=== PATIENT | male | born 1945 | race Caucasian/White ===

== ENCOUNTER 2018-07-14 15:33 | Outpatient (CLI) | payer MEDICARE ==
--- NOTE | 2018-07-14 16:43 | CT ---
CT ABDOMEN AND PELVIS NONCONTRAST: Date: 07/14/18 HISTORY: Microscopic hematuria. FINDINGS: Each renal collecting system, ureter, and the urinary bladder are decompressed. Parapelvic cysts are stable compared to the prior study. Oval calcifications within nondilated calices at the superior pole of the left kidney is 0.6 cm, at t he mid portion 1.0 cm, and at the inferior pole 1.2 cm. No stones are apparent on the right. Lack of contrast limits evaluation for other abnormalities. Gallbladder is surgically absent. Complex lobular exophytic slightly hyperdense cyst projecting superiorly from the left kidney measures up to 4.1 cm and is stable compared to the prior study from 2013. A 4.1 cm diverticulum projects posterior ly and rightward from the urinary bladder and a 2.6 cm diverticulum projects superiorly. Degenerative changes of lumbar spine. Calcification in the arterial structures. Calcified granulomata are consist ent with healed granulomatous disease. IMPRESSION: 1. Nonobstructing left renal calculi measuring up to 1.2 cm. 2. Urinary bladder diverticula suggestive of chronic bladder outlet obstruction. 3. Atherosclerosis. 4. Left renal cysts are stable. POS: [facility]
== END 2018-07-14 15:34 | disposition home or self-care (01) ==
LOC: BICCT 15:33
PROVIDERS: ATTEND Urology
DX: R31.29 Other microscopic hematuria (principal); N20.0 Calculus of kidney; N32.3 Diverticulum of bladder; I25.10 Atherosclerotic heart disease of native coronary artery without angina pectoris; N28.1 Cyst of kidney, acquired
CPT/HCPCS: 74176

== ENCOUNTER 2018-08-10 15:09 | Outpatient (CLI) | payer MEDICARE ==
[2018-08-10 17:12] LABS: Hemoglobin 15.2 g/dL (14.0-18.0); Mean Corpuscular HGB CONC 32.9 g/dL (32.0-36.0); Mean Corpuscular Volume 97.3 fL (78.0-98.0); Mean Platelet Volume 8.1 fL (7.4-10.4); Platelet Count 229 thou/uL (130-400); RBC Distribution Width 11.7 % (11.5-14.5); Red Blood Cell (RBC) Count 4.73 mill/uL (4.70-6.10); White Blood Cell (WBC) Count 7.9 thou/uL (4.8-10.8)
[2018-08-10 17:26] LABS: Anion Gap 12 mmol/L (10-20); BUN (Urea Nitrogen) 22 mg/dL (8.4-25.7); Calc. Creatinine Clearance 0 mL/min (70-130); Calcium 9.7 mg/dL (7.8-10.44); Carbon Dioxide 28 mmol/L (23-31); Chloride 106 mmol/L (98-107); Estimated GFR-MDRD 70; Glucose 92 mg/dL (83-110); Potassium 3.9 mmol/L (3.5-5.1); Sodium 142 mmol/L (136-145)
== END 2018-08-10 15:10 | disposition home or self-care (01) ==
LOC: LABBT 15:09
PROVIDERS: ATTEND Urology
DX: Z01.812 Encounter for preprocedural laboratory examination (principal); Z12.5 Encounter for screening for malignant neoplasm of prostate; R33.9 Retention of urine, unspecified; N40.1 Benign prostatic hyperplasia with lower urinary tract symptoms; R97.20 Elevated prostate specific antigen [PSA]; N30.00 Acute cystitis without hematuria; E83.50 Unspecified disorder of calcium metabolism; R31.29 Other microscopic hematuria; R39.14 Feeling of incomplete bladder emptying; N20.0 Calculus of kidney
CPT/HCPCS: 80048; 81001; 85027; 87086

== ENCOUNTER 2018-08-22 05:53 | Day surgery (SDC) | payer MEDICARE ==
[2018-08-10 15:17] VITALS: BMI 25.5
[2018-08-22] MEDS ORDERED: Dexamethasone 4 mg/ml Vial ONE (06:23)
[2018-08-22] MEDS ORDERED: cefTRIAXone\\ROCEPHIN 1 GM in Sodium Chloride 0.9% 100 ML IVPB SCH (06:45)
[2018-08-22] MEDS ORDERED: Fentanyl 100 MCG/2 ML VIAL ONE ×2 (07:03→08:06)
--- NOTE | 2018-08-22 07:27 | RAD ---
KUB: DATE: 08/22/18 COMPARISON: None. HISTORY: Preoperative radiograph. FINDINGS: Anterior view of the abdomen shows nonspecific, nonobstructed bowel gas pattern. Two calcifications p roject over the left renal shadow. The largest measures 10.0 mm in size. Cholecystectomy clips are se en. No calcifications project over the right renal shadow. IMPRESSION: Left nephrolithiasis. POS: [facility]
[2018-08-22] MEDS ORDERED: B & O ONE (07:38)
[2018-08-22] MEDS ORDERED: Furosemide 20 MG/2 ML VIAL ONE (07:38)
[2018-08-22] MEDS ORDERED: Midazolam HCl 2 mg/2 ml Vial ONE (08:06)
--- NOTE | 2018-08-22 11:40 | OP ---
DATE OF PROCEDURE: 08/22/2018 PREOPERATIVE DIAGNOSES: Benign prostatic hyperplasia and left renal stones. POSTOPERATIVE DIAGNOSES: Benign prostatic hyperplasia and left renal stones. PROCEDURES PERFORMED: GreenLight laser vaporization of the prostate with enucleation of lateral lobes as well as left extracorporeal shockwave lithotripsy of the upper pole stone only. COMPLICATIONS: No complications. BLOOD LOSS: Minimal. DRAINS REMAINING: A 20-St Helenian 2-way. SPECIMEN: Prostate. INDICATIONS FOR PROCEDURE: The patient is a 73-year-old male, who I saw in the office for both BPH and stone disease and noted to have 3 left stones, 2 of which were in calices with narrowing along the infundibulum and not symptomatic to opt not to address those. There was another in the upper pole, that was 6 or 7 mm, that is since we are taking him to the operating room for GreenLight. We decided to address the shockwave therapy. DESCRIPTION OF PROCEDURE: The patient was brought into the room by anesthesia, laid on the table in the supine position. After general anesthetic, his legs were placed in the lithotomy position and his perineum was prepped and draped in sterile fashion. Using a 22.5-St Helenian cystoscope and a 30 degree lens, urethra was traversed, the bladder inspected. The ureteral orifices were identified quite lateral. A large right bladder diverticulum was noted. A power level of 80 was used to take the bladder neck down to the trigone and bladder floor and power level of 180 was used to enucleate the lateral lobes. A power level of 80 was used to get near the veru. The anterior lobe was taken down somewhat after opening up the entire gland, so a small portion of the anterior lobe was taken down with a power level of 80. When the scope was removed, an OK stream was noted, but I suspect that the bladder diverticulum was preventing the significantly strong stream noted. Put the scope back in and readdressed the contour of the bladder neck to try to make sure that was opened up and otherwise, all chips were ensured to be out. I inspected the diverticulum and there were no chips within that. Total of [id number] joules were used, and the scope was removed final time after ensuring hemostasis and a 20-St Helenian catheter was placed to gravity. The patient was then returned to supine and transferred to another room for ESWL. The patient laid on the table supine and positioned such that the lithotriptor could identify the stone in multiple planes and then total of 2500 shocks at a maximum level of 4/6 and a maximum rate of 60 to 90 were then delivered. Good fragmentation was noted. The patient tolerated the procedure well, was then awakened and transferred to PACU in stable condition. Job ID: [id number]
[2018-08-22] MEDS ORDERED: Metoclopramide HCl 10 MG/2 ML VIAL ONE (15:08)
[2018-08-22] MEDS ORDERED: ePHEDrine 50 MG/ML VIAL ONE (15:08)
[2018-08-22] MEDS ORDERED: PHENYLEPHRINE-NS 100 MCG/ML 10 ML SYRINGE ONE (15:08)
[2018-08-22] MEDS ORDERED: Ondansetron PF 4 MG/2 ML Vial ONE (15:08)
[2018-08-22] MEDS ORDERED: Glycopyrrolate 0.2 MG/ML 5 ML SYRINGE ONE (15:08)
[2018-08-22] MEDS ORDERED: Rocuronium Bromide 10 MG/ML (10ML VIAL) ONE (15:08)
[2018-08-22] MEDS ORDERED: Lidocaine 1% PF 5 ML VIAL ONE (15:08)
[2018-08-22] MEDS ORDERED: diphenhydrAMINE 50 MG/ML VIAL ONE (15:08)
[2018-08-22] MEDS ORDERED: PROPOFOL 200 MG/20 ML VIAL ONE (15:08)
== END 2018-08-22 12:38 | disposition home or self-care (01) ==
LOC: SDC 05:53
PROVIDERS: ATTEND Urology
PROC: 0TF4XZZ Fragmentation in Left Kidney Pelvis, External Approach (ICD-10-PCS; principal; 2018-08-22)
PROC: 0V508ZZ Destruction of Prostate, Via Natural or Artificial Opening Endoscopic (ICD-10-PCS; 2018-08-22)
DX: N20.0 Calculus of kidney (principal); B40.1 Chronic pulmonary blastomycosis; N32.3 Diverticulum of bladder; N40.0 Benign prostatic hyperplasia without lower urinary tract symptoms; I25.10 Atherosclerotic heart disease of native coronary artery without angina pectoris; I10 Essential (primary) hypertension; E78.00 Pure hypercholesterolemia, unspecified; I65.21 Occlusion and stenosis of right carotid artery; Z86.73 Personal history of transient ischemic attack (TIA), and cerebral infarction without residual deficits; Z79.899 Other long term (current) drug therapy; Z98.890 Other specified postprocedural states; Z79.82 Long term (current) use of aspirin
CPT/HCPCS: 74018; 88305; J0696; J1100; J1200; J1940; J2001; J2250; J2405; J2704; J2765; J3010; J3490; J7050

== ENCOUNTER 2018-09-18 14:12 | Outpatient (CLI) | payer MEDICARE ==
--- NOTE | 2018-09-18 15:28 | RAD ---
KUB: HISTORY: Renal stones. FINDINGS: Comparison is made with the exam of 08/22/2018. The 2 calcifications in the projection of the left kidney are again seen with the largest measuring 1 0 mm in size. These are stable. Postop changes of cholecystectomy are again noted. No other suspic ious calcifications are seen. The bowel gas pattern is unremarkable. There are degenerative changes in the spine. IMPRESSION: Stable left nephrolithiasis. POS: [facility]
== END 2018-09-18 14:13 | disposition home or self-care (01) ==
LOC: BICRAD 14:12
PROVIDERS: ATTEND Urology
DX: N20.0 Calculus of kidney (principal)
CPT/HCPCS: 74018

== ENCOUNTER 2020-02-27 08:40 | Outpatient (CLI) | payer MEDICARE ==
--- NOTE | 2020-02-27 09:29 | CT ---
CT Abdomen Pelvis W WO con: 02/27/2020 12:00 AM CLINICAL HISTORY: Hematuria. TECHNIQUE: Multiple contiguous axial images were obtained and a CT of the abdomen and pelvis without and with IV contrast. Postcontrast images were obtained in the nephrographic and excretory phases. Sagittal and coronal reformats were performed. COMPARISON: None. FINDINGS: Kidneys and Urinary Tract: Right kidney and ureter: No calculi. No hydronephrosis or hydroureter. No renal mass or other lesions . No urothelial lesions: no filling defect, dilation, stricture or wall thickening. Left kidney and ureter: Multiple calculi measuring up to 10 mm in size. No hydronephrosis or hydroure ter. Multiple left renal cysts measuring up to 3.3 cm in size. There are parapelvic cysts in the left kidney. There is a proximal left ureteral calcification measuring 10 mm in size. Urinary bladder: 3.2 cm right posterior lateral bladder diverticulum. Remainder of Abdomen and Pelvis: Liver: Normal. Gallbladder and biliary system: Removed No biliary ductal dilatation. Spleen: Normal. Pancreas: Normal. Adrenal glands: Normal. GI tract: Scattered diverticula in the colon. Normal caliber small bowel. Abdominal aorta and its major branches: Atherosclerotic calcifications No aneurysm. Peritoneum/retroperitoneum: Normal. No ascites. No adenopathy. Pelvic structures: Slight prominence of the seminal vesicles. No pelvic lymphadenopathy. Body wall and musculoskeletal: Degenerative changes in the spine. Visualized lower thorax: Calcified granuloma in the left lung base. There are calcified left hilar an d mediastinal lymph nodes. Calcifications are seen in the coronary arteries. IMPRESSION: 1. Left proximal ureteral calcification without significant hydronephrosis 2. Nonobstructing left renal calcifications 3. Left renal cysts 4. Diverticulosis 5. Urinary bladder diverticulum
[2020-02-27] MEDS ORDERED: Iopamidol 370 76% 100 ML VIAL ONE (13:30)
== END 2020-02-27 08:41 | disposition home or self-care (01) ==
LOC: BICCT 08:40
PROVIDERS: ATTEND Family Medicine
DX: R31.0 Gross hematuria (principal); N28.89 Other specified disorders of kidney and ureter; N28.1 Cyst of kidney, acquired; N32.3 Diverticulum of bladder; K57.30 Diverticulosis of large intestine without perforation or abscess without bleeding
CPT/HCPCS: 74178; Q9967

== ENCOUNTER 2020-03-21 07:10 | Outpatient (CLI) | payer MEDICARE, OTHER ==
[2020-03-21 14:29] LABS: Hemoglobin 15.7 g/dL (14.0-18.0); Mean Corpuscular HGB CONC 33.3 g/dL (32.0-36.0); Mean Corpuscular Hemoglobin 32.6 pg (27.0-31.0); Mean Corpuscular Volume 97.9 fL (78.0-98.0); Platelet Count 253 thou/uL (130-400); RBC Distribution Width 12.3 % (11.5-14.5); Red Blood Cell (RBC) Count 4.81 mill/uL (4.70-6.10)
[2020-03-21 14:52] LABS: Anion Gap 15 mmol/L (10-20); BUN (Urea Nitrogen) 20 mg/dL (8.4-25.7); Calc. Creatinine Clearance 0 mL/min (70-130); Calcium 9.4 mg/dL (7.8-10.44); Carbon Dioxide 27 mmol/L (23-31); Chloride 106 mmol/L (98-107); Estimated GFR-MDRD 76; Glucose 87 mg/dL (83-110); Potassium 4.5 mmol/L (3.5-5.1); Sodium 143 mmol/L (136-145)
[2020-03-21 14:56] LABS: Bilirubin Negative (Negative); Blood, Urine 3+ (Negative); Clarity Clear (Clear); Glucose, Urine (Dipstick) Normal (Negative); Ketone, Urine Negative (Negative); Leukocyte 75 Leu/uL (Negative); Nitrite Negative (Negative); Protein, Urine (Dipstick) 30 mg/dL (Neg-Trace); RBC/HPF Greater than 50 HPF (0-3); Specific Gravity, Urine 1.025 (1.002-1.036); Squamous Epithelial 0-3 HPF (0-3); Urobilinogen Normal mg/dL (Less than 2); WBC/HPF 21-50 HPF (0-3); pH, Urine 5.5 (5.0-9.0)
[2020-03-21 15:03] LABS: Bacteria/HPF 1+ HPF (None Seen)
[2020-03-22 14:54] LABS: SARS-CoV-2 MS2 Positive; SARS-CoV-2 N Gene Negative; SARS-CoV-2 S Gene Negative; SARS-CoV-2 by NAA Not Detected (NotDetected); SARS-CoV-2 orf1ab Negative
--- NOTE | 2020-03-23 13:09 | EKG ---
Test Reason : Blood Pressure : / mmHG Vent. Rate : 066 BPM Atrial Rate : 066 BPM P-R Int : 180 ms QRS Dur : 088 ms QT Int : 396 ms P-R-T Axes : -24 051 050 degrees QTc Int : 415 ms Normal sinus rhythm Normal ECG No previous ECGs available Confirmed by CHEYANNE STONE MD ([id number]) on 03/23/2020 1:08:47 PM Referred By: EDER Confirmed By:CHEYANNE STONE MD
== END 2020-03-21 07:11 | disposition home or self-care (01) ==
LOC: LABBT 07:10
PROVIDERS: ATTEND Urology
DX: Z01.818 Encounter for other preprocedural examination (principal); Z20.828 Contact with and (suspected) exposure to other viral communicable diseases; N20.0 Calculus of kidney
CPT/HCPCS: 80048; 81001; 85027; 87086; 93005; U0003; 87635; 93010

== ENCOUNTER 2020-04-14 12:56 | Outpatient (CLI) | payer MEDICARE ==
--- NOTE | 2020-04-14 13:19 | ULT ---
THYROID ULTRASOUND: HISTORY: Thyroid nodule. FINDINGS: Thyroid isthmus: 0.3 cm. Right thyroid lobe: 1.9 x 2.3 x 5.7 cm. Left thyroid lobe: 1.8 x 2.0 x 5.7 cm. Thyroid nodules: Right thyroid lobe: Solid isoechoic nodule measuring 1.3 x 1.2 x 1.3 cm in the midpole. Left thyroid lobe: Solid isoechoic nodule measuring 0.7 x 0.5 x 0.7 cm the mid pole. Cystic focus in the lower pole measuring 0.4 x 0.4 x 0.4 cm. IMPRESSION: 1. Solid nodule in the left and right thyroid lobe. 2. TIRADS level TR3 mildly suspicious. Followup ultrasound in 1 year. Transcribed Date/Time: 04/14/2020 1:28 PM
== END 2020-04-14 12:57 | disposition home or self-care (01) ==
LOC: BICULT 12:56
PROVIDERS: ATTEND Internal Medicine Cardiovascular Disease
DX: E04.1 Nontoxic single thyroid nodule (principal)
CPT/HCPCS: 76536

== ENCOUNTER 2020-06-05 14:46 | Outpatient (CLI) | payer MEDICARE ==
--- NOTE | 2020-06-05 17:25 | ULT ---
RENAL ULTRASOUND: 06/05/20 HISTORY: Recent left sided renal stone removal. History of cyst. Real time imaging of the right and left kidneys were performed. Right kidney measures 12.2 and left k idney 12.7 cm in size. There are several left sided renal cysts. There is a grouping of cysts in aggr egate measuring 6 cm in dimension in the upper pole region. A 2 cm cyst in the parapelvic location in the mid pole and a 1.8 cm lower pole cyst. No obstruction or solid mass. Bladder diverticulum along the right side of the bladder is incidentally noted. IMPRESSION: 1. Multiple left renal cysts. 2. Right sided bladder diverticulum. POS: [facility]
== END 2020-06-05 14:47 | disposition home or self-care (01) ==
LOC: BICULT 14:46
PROVIDERS: ATTEND Urology
DX: E83.59 Other disorders of calcium metabolism (principal); Z87.442 Personal history of urinary calculi; N28.1 Cyst of kidney, acquired; N32.3 Diverticulum of bladder
CPT/HCPCS: 76770

== ENCOUNTER 2020-12-08 09:26 | Outpatient (CLI) | payer MEDICARE | END 2020-12-08 09:27 | disposition home or self-care (01) | LOC: RAD 09:26 | PROVIDERS: ATTEND Urology | DX: Z87.442 Personal history of urinary calculi (principal); N28.89 Other specified disorders of kidney and ureter | CPT/HCPCS: 74018 ==

== ENCOUNTER 2021-04-13 13:03 | Outpatient (CLI) | payer MEDICARE | END 2021-04-13 13:04 | disposition home or self-care (01) | LOC: BICULT 13:03 | PROVIDERS: ATTEND Internal Medicine Cardiovascular Disease | DX: E04.1 Nontoxic single thyroid nodule (principal) | CPT/HCPCS: 76536 ==

== ENCOUNTER 2022-04-09 07:38 | Outpatient (CLI) | payer MEDICARE | END 2022-04-09 07:39 | disposition home or self-care (01) | LOC: TBSIIMAG 07:38 | PROVIDERS: ATTEND Family Medicine | DX: M51.16 Intervertebral disc disorders with radiculopathy, lumbar region (principal) | CPT/HCPCS: 72148 ==

== ENCOUNTER 2022-05-26 10:25 | Outpatient (CLI) | payer MEDICARE | END 2022-05-26 10:26 | disposition home or self-care (01) | LOC: TBSIIMAG 10:25 | PROVIDERS: ATTEND Neurological Surgery | DX: G95.11 Acute infarction of spinal cord (embolic) (nonembolic) (principal); M47.814 Spondylosis without myelopathy or radiculopathy, thoracic region | CPT/HCPCS: 72146 ==

== ENCOUNTER 2022-06-07 12:39 | Outpatient (CLI) | payer MEDICARE | END 2022-06-07 12:40 | disposition home or self-care (01) | LOC: SCSMRI 12:39 | PROVIDERS: ATTEND Psychiatry & Neurology Neurology | DX: G82.20 Paraplegia, unspecified (principal); G95.9 Disease of spinal cord, unspecified; M47.812 Spondylosis without myelopathy or radiculopathy, cervical region | CPT/HCPCS: 70553; 72156; 72157 ==

== ENCOUNTER 2022-07-14 06:59 | Day surgery (SDC) | payer MEDICARE ==
[2022-07-14 07:50] VITALS: BP 125/69; TEMP 97.6
[2022-07-14 09:07] LABS: Color Of CSF Supernatant COLORLESS (Colorless); Tube # 1; Unspun CSF Color COLORLESS (Colorless)
[2022-07-14 09:31] LABS: CSF, Glucose 55 mg/dl (40-70); CSF, Protein 57 mg/dL (15-40)
[2022-07-14 10:15] LABS: CSF Source CSF; Clarity Clear (Clear); Tube # 4
[2022-07-14 10:16] LABS: CSF RBC Count - Manual 0 /cu.mm (None Seen); CSF WBC/NonHematics Count-Man 1 /cu.mm (0-5)
[2022-07-14 11:45] LABS: Reference Lab Name LABCORP
[2022-07-14 11:46] LABS: Ref Lab Test Ordered EBV PCR/CSF
[2022-07-14 11:51] LABS: Ref Lab Test Ordered CMV PCR/CSF; Reference Lab Name LABCORP
[2022-07-14] MEDS ORDERED: FLU VACC QS2022-23(65YR UP)/PF 240 MCG/0.7 ML SYRINGE IM ONE (12:00)
== END 2022-07-14 09:37 | disposition home or self-care (01) ==
LOC: RAD 06:59
PROVIDERS: ATTEND Psychiatry & Neurology Neurology
PROC: 009U3ZX Drainage of Spinal Canal, Percutaneous Approach, Diagnostic (ICD-10-PCS; principal; 2022-07-14)
DX: G82.20 Paraplegia, unspecified (principal); G95.9 Disease of spinal cord, unspecified; I10 Essential (primary) hypertension; E78.5 Hyperlipidemia, unspecified; Z79.82 Long term (current) use of aspirin; Z79.899 Other long term (current) drug therapy
CPT/HCPCS: 62270; 82945; 83873; 83916; 84157; 87529; 87798; 89051

== ENCOUNTER 2022-09-08 09:38 | Outpatient (CLI) | payer MEDICARE ==
[~2022-09-08 09:38] MED LIST: Magnevist 469MG/ML 20 ML VIAL ONE
== END 2022-09-08 09:39 | disposition home or self-care (01) ==
LOC: TBSIIMAG 09:38
DX: M47.14 Other spondylosis with myelopathy, thoracic region (principal)
CPT/HCPCS: 72157; A9579

== ENCOUNTER 2024-02-14 16:04 | Outpatient (CLI) | payer MEDICARE | END 2024-02-14 16:05 | disposition home or self-care (01) | LOC: SCSRAD 16:04 | PROVIDERS: ATTEND Family Medicine | DX: R05.9 Cough, unspecified (principal) | CPT/HCPCS: 71046 ==

== ENCOUNTER 2024-06-29 10:29 | Outpatient (CLI) | payer MEDICARE | END 2024-06-29 10:30 | disposition home or self-care (01) | LOC: BICMRI 10:29 | PROVIDERS: ATTEND Family Medicine | DX: M51.16 Intervertebral disc disorders with radiculopathy, lumbar region (principal); M47.26 Other spondylosis with radiculopathy, lumbar region; M43.16 Spondylolisthesis, lumbar region; M48.061 Spinal stenosis, lumbar region without neurogenic claudication | CPT/HCPCS: 72148 ==